=== PATIENT | female | born 1980 | race Caucasian/White ===

== ENCOUNTER → 2023-10-30 16:53 | Outpatient (CLI) | payer OTHER, SELFPAY ==
--- NOTE | 2023-10-30 | DI.MRI.S_ITS ---
PROCEDURE: MR HEAD/BRAIN WO CON INDICATIONS: SYNCOPE AND COLLAPSE TECHNIQUE: Noncontrast axial T1 spin echo, axial T2 fast spin echo, sagittal and axial FLAIR, coronal T2 fast spin echo, axial gradient echo, axial diffusion and ADC through the brain. COMPARISON: [facility], , CT HEAD W/O CONTRAST, 10/02/2023, 9:12. FINDINGS: Image quality: Excellent. CSF Spaces: Basal cisterns are patent. No extra-axial fluid collections. Ventricles are normal in size and shape. Brain: No intracranial masses or hemorrhage. Valentine/white matter interface is normal. Brainstem appears normal. Diffusion-weighted images demonstrate no acute infarct. No chronic ischemic insults. Normal intravascular flow voids are present. The pituitary tissue is flattened along the floor of the sella turcica, as previously demonstrated. Skull and face: Calvarium has normal marrow signal. Orbits appear normal. No abnormal fluid can be seen along the optic nerves. Sinuses: Sinuses and mastoids are clear. IMPRESSION: No imaging explanation is found for this patient's presenting symptoms. To the limits of this noncontrast study, no findings masses or mass effect can be seen. Dictated by: Clifford Berry M.D. on 10/30/2023 at 17:47 Approved by: Clifford Berry M.D. on 10/30/2023 at 17:49
== END ==
LOC: MRI 17:01
PROVIDERS: Referring Provider Nurse Practitioner Family; Visit Provider Nurse Practitioner Family
DX: R55 Syncope and collapse (principal)
CPT/HCPCS: 70551